=== PATIENT | female | born 1935 | race Caucasian/White ===

== ENCOUNTER 2016-03-28 13:45 | Outpatient (RCR) | payer MEDICARE, BC ==
[~2016-03-28 13:45] MED LIST: ACIDOPHILUS PO; ADVAIR 250/28 DISKU1 IH; ADVAIR 250/28 DISKUS IH; ADVAIR IH; ALAVERT10 M1 PO; BETAPACE 80MG80 MG PO; BIOTIN1 MG PO; BIOTIN5 MG PO; CALCIUM & MAGNE1 CAP PO; CLARITIN 1010 MG/TAB PO; CLEOCIN HCL300 MG PO; COENZYME Q-10100 MG PO; COMBIVENT INH14.7 GM IH; CORDARONE200 MG PO; CORTIZONE-10 MAXIM1% TP; CYMBALTA 30MG30 MG PO; D-BIOTIN10 MG PO; DILTIAZEM PO; EFFEXOR; EFFEXOR-XR150 MG PO; ENDOCET 325 MG-1 TA2 PO; ENDOCET PO; FENTANYL 12MCG; FENTANYL 50MCG TP; FISH OIL CONC1000 MG PO; FLEXERIL10 MG PO; FLONASE NASAL S16 GM NS; FOSAMAX 70MG TA70 MG PO; GLUCOSAMINE & C1 CA1 PO; GLUCOSAMINE & C1 TA2 PO; GLUCOSAMINE/CHONDROI PO; HCTZ PO; IRON FERROUS S325 MG PO; L-LYSINE1000 MG PO; LASIX 20MG TABL20 MG PO; LASIX 40MG TABL40 MG PO; LASIX40 MG PO; LEVAQUIN 750MG750 M1 PO; LEVAQUIN750 MG PO; LEVOTHYROXIN0.025 M1 PO; LEVOTHYROXINE PO; LEXAPRO10 MG PO; LISINOPRIL; LISINOPRIL PO; LISINOPRIL/HCTZ1 TAB PO; LISINOPRIL10 MG PO; LISINOPRIL2.5 MG PO; LORTAB 5/500 501 TAB PO; LYRICA 50MG CAP50 MG PO; MERIBIN5 MG PO; METRONIDAZOLE CREAM TP; MILK OF MA400 MG/51 PO; MIRALAX17 GM/DOSE PO; MS CONTIN 115 MG/TAB PO; MVI PO; NASONEX SPRAY; NASONEX SPRAY17 GM NS; NORCO 325 MG-51 TAB PO; NORITATE1% TOP; OMEGA-3 FISH1200 MG PO; PREDNISONE10 MG; PREDNISONE10 MG PO; PREMARIN0.625 MG PO; PRILOSEC 20MG20 MG PO; PRINIVIL10 MG PO; PROBIOTICA100 MILLIO PO; PROVIGIL; PROVIGIL 100MG100 MG PO; PROVIGIL PO; PULMICORT INHALER IH; ROXICODONE 55 MG/TAB PO; RT ADVAIR 228 DISKUS IH; RT ADVAIR HFA 1112 G IH; SENOKOT S 50 MG1 TAB PO; SINGULAIR 110 MG/TAB PO; SINGULAIR10 MG PO; SPORANOX 1100 MG/CAP PO; STOOL SOFTENER100 MG PO; SYNTHROID 0.0.025 MG PO; SYSTANE 0.4%-0.1 SOL OU; TINACTIN1% TP; VITAMIN C1 TAB PO; VITAMIN D 50,1.25 MG PO; VITAMIN D50000 IU PO; WELLBUTRIN SR150 MG PO; ZESTRIL 10MG10 MG PO; ZITHROMAX500 MG PO; ZYLOPRIM 100MG100 MG PO; [UNRECOGNIZED DRUG - OTHER] PO
== END 2016-04-24 | disposition still patient (30) ==
LOC: MKS.ESL.PT
DX: M54.2 Cervicalgia (principal); M54.5 Low back pain; M25.552 Pain in left hip
CPT/HCPCS: G8978-GP; G8979-GP

== ENCOUNTER 2016-07-20 13:30 | Outpatient (RCR) | payer MEDICARE, BC | END 2016-07-24 | disposition home or self-care (01) | LOC: MKS.ESL.PT | DX: M79.604 Pain in right leg (principal); M53.82 Other specified dorsopathies, cervical region ==

== ENCOUNTER 2016-11-09 13:30 | Outpatient (RCR) | payer MEDICARE, BC | END 2016-11-15 | disposition still patient (30) | LOC: MKS.ESL.PT | DX: M54.5 Low back pain (principal); M25.552 Pain in left hip; M54.2 Cervicalgia; G89.29 Other chronic pain | CPT/HCPCS: G8978-GP; G8979-GP ==

== ENCOUNTER 2017-02-08 13:30 | Outpatient (RCR) | payer MEDICARE, BC | END 2017-03-14 | LOC: MKS.ESL.PT | DX: M79.604 Pain in right leg (principal); M43.6 Torticollis ==

== ENCOUNTER → 2017-06-13 | Outpatient (RCR) | payer MEDICARE, BC | END | disposition home or self-care (01) | LOC: MKS.ESL.PT | DX: M54.2 Cervicalgia (principal); M54.9 Dorsalgia, unspecified; M25.561 Pain in right knee; M25.551 Pain in right hip; J44.9 Chronic obstructive pulmonary disease, unspecified | CPT/HCPCS: G8978-GP; G8979-GP ==

== ENCOUNTER 2017-10-07 15:00 | Outpatient (RCR) | payer MEDICARE, BC | END 2017-10-10 | disposition home or self-care (01) | LOC: MKS.ESL.PT | DX: M54.5 Low back pain (principal); M25.552 Pain in left hip; M54.2 Cervicalgia | CPT/HCPCS: G8978-GP; G8979-GP ==

== ENCOUNTER 2018-01-13 14:00 | Outpatient (RCR) | payer MEDICARE, BC | END 2018-01-30 | disposition home or self-care (01) | LOC: MKS.ESL.PT | DX: M25.512 Pain in left shoulder (principal); M79.602 Pain in left arm; M54.2 Cervicalgia; M54.9 Dorsalgia, unspecified; G89.29 Other chronic pain | CPT/HCPCS: G8978-GP; G8979-GP ==

== ENCOUNTER 2018-04-11 14:15 | Outpatient (RCR) | payer MEDICARE, BC | END 2018-05-15 | disposition home or self-care (01) | LOC: MKS.ESL.PT | DX: M54.2 Cervicalgia (principal); M25.512 Pain in left shoulder; M79.602 Pain in left arm ==

== ENCOUNTER 2018-08-11 14:15 | Outpatient (RCR) | payer MEDICARE, BC | END 2018-09-07 | disposition still patient (30) | LOC: MKS.ESL.PT | DX: M47.812 Spondylosis without myelopathy or radiculopathy, cervical region (principal); M47.816 Spondylosis without myelopathy or radiculopathy, lumbar region ==

== ENCOUNTER → 2018-11-06 | Outpatient (CLI) | payer MEDICARE, BC | LOC: COL.RAD 10:30 | DX: N26.1 Atrophy of kidney (terminal) (principal); N28.1 Cyst of kidney, acquired ==

== ENCOUNTER 2018-12-19 13:30 | Outpatient (RCR) | payer MEDICARE, BC | END 2018-12-21 | LOC: MKS.ESL.PT | DX: M51.36 Other intervertebral disc degeneration, lumbar region (principal) ==

== ENCOUNTER → 2019-03-12 | Outpatient (CLI) | payer MEDICARE, BC | LOC: MC.RAD 13:14 | DX: Z12.31 Encounter for screening mammogram for malignant neoplasm of breast (principal) ==

== ENCOUNTER 2019-05-22 13:30 | Outpatient (RCR) | payer MEDICARE, BC | END 2019-07-16 | disposition home or self-care (01) | LOC: MKS.ESL.PT | DX: M48.061 Spinal stenosis, lumbar region without neurogenic claudication (principal); M43.16 Spondylolisthesis, lumbar region; M48.02 Spinal stenosis, cervical region; R26.81 Unsteadiness on feet ==

== ENCOUNTER 2020-05-17 11:38 | Observation (INO) | payer MEDICARE, BC ==
[~2020-05-17] VITALS: Ht 165.1 cm; Wt 67.7 kg
[2020-05-17] VITALS (11 sets, daily range): BP systolic 108–164; BP diastolic 50–100; PULSE 30–70; TEMP 97.6–98.2
[2020-05-17 12:31] LABS: BASO # 0.1 (0.0-0.2); BASO % 0.6 % (0.0-2.0); EOS # 0.1 (0.0-0.7); EOS % 1.6 % (0-4.0); GRAN # 6.4 (1.4-6.5); GRAN % 72.1 % (42.2-75.2); HEMOGLOBIN 10.8 g/dl (12.5-16.0); LYMPH # 1.6 (1.2-3.4); LYMPH % 18.2 % (20.0-51.0); MEAN CELL VOLUME 92 fl (80.0-100.0); MEAN CORPUSCULAR HEMOGLOBIN 30 pg (27.0-31.0); MEAN CORPUSCULAR HGB CONC 33 g/dl (33.0-37.0); MEAN PLATELET VOLUME 11.7 fl (7.4-10.4); MONO # 0.6 (0.1-0.6); MONO % 6.9 % (1.7-9.3); PLATELET COUNT 200 K/mm3 (130-400); RED BLOOD COUNT 3.56 M/mm3 (4.10-5.30); REDCELL DISTRIBUTION WIDTH-CV 15.4 % (11.5-14.5)
[2020-05-17 12:32] LABS: HEMATOCRIT 32.6 % (37.0-47.0)
[2020-05-17 12:33] LABS: INR 1.1 (0.8-3.0); PROTHROMBIN TIME 11.8 SECONDS (9.7-12.8)
[2020-05-17 12:34] LABS: ALANINE AMINOTRANSFERASE 14 U/L (4-34); ALBUMIN 3.6 gm/dL (3.5-5.0); ALKALINE PHOSPHATASE 80 U/L (50-136); ANION GAP 7 mmol/L (7-16); AST,SGOT 21 U/L (15-37); BILIRUBIN,TOTAL 0.5 mg/dL (0.0-1.0); BLOOD UREA NITROGEN 22 mg/dL (7-17); CALCIUM 9.1 mg/dL (8.4-10.2); CARBON DIOXIDE 23 mmol/L (22-30); CHLORIDE 106 mmol/L (98-107); CREATININE, serum 1.07 (0.52-1.25); GLUCOSE 89 mg/dL (74-106); POTASSIUM 4.7 mmol/L (3.4-5.0); SODIUM 136 mmol/L (137-145); TOTAL PROTEIN 6.5 gm/dL (6.4-8.2)
[2020-05-17 12:46] LABS: TROPONIN-I < 0.012 ng/mL (0.000-0.035)
[2020-05-17] MEDS ORDERED: VITAMIN D31000 IU PO (16:32)
[2020-05-17] MEDS ORDERED: CRANBERRY 100 M1 SGL PO (16:33)
[2020-05-17] MEDS ORDERED: VOLTAREN GEL 1%1 TU TP (16:34)
[2020-05-17] MEDS ORDERED: LANOXIN 0.120.125 MG PO (16:35)
[2020-05-17] MEDS ORDERED: ATROVENT NASAL15 ML NS (16:36)
[2020-05-17] MEDS ORDERED: COZAAR 50MG50 MG/TAB PO (16:37)
[2020-05-17] MEDS ORDERED: PROTONIX 40MG T40 MG PO (16:38)
[2020-05-17] MEDS ORDERED: SYSTANE 0.4%-0.1 SOL OP (16:39)
[2020-05-17] MEDS ORDERED: CARAFATE 1GM1 G PO (16:43)
[2020-05-17] MEDS ORDERED: VENTOLIN0.09 MG IH (16:44)
[2020-05-18 01:20] VITALS: BP 153/87; PULSE 64; TEMP 98.2
[2020-05-18 02:28] LABS: COLLECTION METHOD CLEAN CATCH
[2020-05-18 02:33] LABS: PH 6 (5-8); SQUAMOUS EPITHELIAL 0-2 /hpf; URINE APPEARANCE Clear; URINE BACTERIA None Seen /hpf; URINE BILIRUBIN Negative (NEGATIVE); URINE BLOOD Negative (NEGATIVE); URINE COLOR Straw; URINE GLUCOSE Negative (NEGATIVE); URINE KETONE Negative (NEGATIVE); URINE LEUKOCYTE ESTERASE Negative (NEGATIVE); URINE NITRATE Negative (NEGATIVE); URINE PROTEIN(semi-quant) Negative (NEGATIVE); URINE RBC 0-2 /hpf; URINE UROBILINOGEN Negative (NEGATIVE)
[2020-05-18 04:23] VITALS: BP 142/70; PULSE 59; TEMP 98.2
[2020-05-18 07:56] VITALS: BP 136/50; PULSE 60; TEMP 97.5
[2020-05-18] MEDS ORDERED: CEPHALEXIN500 M1 PO (07:56)
[2020-05-18 11:33] VITALS: BP 140/57; PULSE 61; TEMP 97.8
[2020-05-18] MEDS ORDERED: TOPROL XL 25MG25 MG PO (12:19)
== END 2020-05-18 16:23 | disposition home or self-care (01) ==
LOC: COL.ER 11:38 → MEDICAL 13:24
PROVIDERS: Nurse Practitioner Primary Care; Physician Assistant; ADMIT Hospitalist
DX: Z45.010 Encounter for checking and testing of cardiac pacemaker pulse generator [battery] (principal); I44.2 Atrioventricular block, complete; G47.33 Obstructive sleep apnea (adult) (pediatric); I12.9 Hypertensive chronic kidney disease with stage 1 through stage 4 chronic kidney disease, or unspecified chronic kidney disease; N18.9 Chronic kidney disease, unspecified; I34.0 Nonrheumatic mitral (valve) insufficiency; I48.91 Unspecified atrial fibrillation; I49.5 Sick sinus syndrome; J98.4 Other disorders of lung; J45.909 Unspecified asthma, uncomplicated; N39.0 Urinary tract infection, site not specified; E03.9 Hypothyroidism, unspecified; G47.419 Narcolepsy without cataplexy; G62.9 Polyneuropathy, unspecified; Z20.822 Contact with and (suspected) exposure to COVID-19; Z90.710 Acquired absence of both cervix and uterus; Z96.642 Presence of left artificial hip joint; Z79.890 Hormone replacement therapy; Z79.899 Other long term (current) drug therapy; Z79.891 Long term (current) use of opiate analgesic; Z88.8 Allergy status to other drugs, medicaments and biological substances; Z88.6 Allergy status to analgesic agent; Z82.3 Family history of stroke
CPT/HCPCS: C1785; C1894; C1898; G0378; J0690; J2250; J3010; J7030; Q9967

== ENCOUNTER 2020-08-19 14:30 | Outpatient (RCR) | payer MEDICARE, BC ==
[~2020-08-19 14:30] MED LIST changes: +ATROVENT NASAL15 ML NS; +CARAFATE 1GM1 G PO; +CEPHALEXIN500 M1 PO; +COZAAR 50MG50 MG/TAB PO; +CRANBERRY 100 M1 SGL PO; +LANOXIN 0.120.125 MG PO; +PROTONIX 40MG T40 MG PO; +SYSTANE 0.4%-0.1 SOL OP; +TOPROL XL 25MG25 MG PO; +VENTOLIN0.09 MG IH; +VITAMIN D31000 IU PO; +VOLTAREN GEL 1%1 TU TP
== END 2020-08-23 | disposition home or self-care (01) ==
LOC: MKS.ESL.PT
DX: I44.2 Atrioventricular block, complete (principal); Z95.0 Presence of cardiac pacemaker

== ENCOUNTER 2020-11-11 14:45 | Outpatient (RCR) | payer MEDICARE, BC | END 2020-11-22 | disposition still patient (30) | LOC: MKS.ESL.PT | DX: I44.2 Atrioventricular block, complete (principal); Z95.0 Presence of cardiac pacemaker ==

== ENCOUNTER 2021-01-27 12:45 | Outpatient (RCR) | payer MEDICARE, BC ==
[~2021-01-27 12:45] MED LIST changes: +COMBIRESP IH
[2021-02-24] MEDS ORDERED: ALLEGRA 180MG180 MG PO (08:51)
[2021-02-24] MEDS ORDERED: PROVIGIL200 MG PO (08:52)
[2021-02-24] MEDS ORDERED: PULMICORT0.5 MG/2 M IH (08:55)
[2021-02-24] MEDS ORDERED: ZITHROMAX 250M250 MG PO (08:56)
[2021-02-24] MEDS ORDERED: ELIQUIS 5MG PO (08:58)
[2021-02-24] MEDS ORDERED: BREO ELLIPTA 21 EACH IH (08:59)
[2021-02-24] MEDS ORDERED: TOPROL XL 25MG25 MG PO (09:00)
[2021-02-24] MEDS ORDERED: ASTELIN NASAL S34 ML NS (09:05)
[2021-02-24] MEDS ORDERED: SODIUM CHLORIDE4 M1 IH (09:08)
[2021-02-24] MEDS ORDERED: PACERONE400 MG PO (09:55)
== END 2021-03-10 | disposition home or self-care (01) ==
LOC: MKS.ESL.PT
DX: I44.2 Atrioventricular block, complete (principal); Z95.0 Presence of cardiac pacemaker

== ENCOUNTER 2021-02-24 07:16 | Day surgery (SDC) | payer MEDICARE, BC ==
[2008-10-18 10:27] VITALS: BP 122/65
[2021-02-24] VITALS (7 sets, daily range): BP systolic 99–141; BP diastolic 61–93; PULSE 78–96; TEMP 98.1
[~2021-02-24] VITALS: Ht 165.1 cm; Wt 79.0 kg
[2021-02-24 08:14] LABS: HEMOGLOBIN 11.8 g/dl (12.5-16.0); MEAN CELL VOLUME 93 fl (80.0-100.0); MEAN CORPUSCULAR HEMOGLOBIN 31 pg (27-31); MEAN CORPUSCULAR HGB CONC 33 g/dl (33.0-37.0); MEAN PLATELET VOLUME 10.9 fl (7.4-10.4); PLATELET COUNT 173 K/mm3 (130-400); RED BLOOD COUNT 3.87 M/mm3 (4.10-5.30); REDCELL DISTRIBUTION WIDTH-CV 15.5 % (11.5-14.5)
[2021-02-24 08:22] LABS: INR 1.4 (0.8-3.0); PROTHROMBIN TIME 15.6 SECONDS (9.7-12.8)
[2021-02-24 08:28] LABS: CALCIUM 8.6 mg/dL (8.4-10.2); CREATININE, serum 1.02 mg/dL (0.57-1.11)
[2021-02-24 08:49] LABS: THYROID STIMULATING HORMONE 2.561 uIU/mL (0.350-4.940)
[2021-02-24] MEDS ORDERED: ALLEGRA 180MG180 MG PO (08:51)
[2021-02-24] MEDS ORDERED: PROVIGIL200 MG PO (08:52)
[2021-02-24] MEDS ORDERED: PULMICORT0.5 MG/2 M IH (08:55)
[2021-02-24] MEDS ORDERED: ZITHROMAX 250M250 MG PO (08:56)
[2021-02-24] MEDS ORDERED: ELIQUIS 5MG PO (08:58)
[2021-02-24] MEDS ORDERED: BREO ELLIPTA 21 EACH IH (08:59)
[2021-02-24] MEDS ORDERED: TOPROL XL 25MG25 MG PO (09:00)
[2021-02-24] MEDS ORDERED: ASTELIN NASAL S34 ML NS (09:05)
[2021-02-24] MEDS ORDERED: NACL IH (09:08)
[2021-02-24] MEDS ORDERED: PACERONE400 MG PO (09:55)
--- NOTE | 2021-02-24 11:15 | NUR ---
Discharge instructions given to pt.Pt verbalizes understanding.INT removed,catheter tip intact.Pt escorted out via wheelchair by this nurse.
== END 2021-02-24 12:28 ==
LOC: COL.CAR 07:16
PROVIDERS: Internal Medicine Cardiovascular Disease
DX: I48.91 Unspecified atrial fibrillation (principal); R42 Dizziness and giddiness; R06.02 Shortness of breath; D50.9 Iron deficiency anemia, unspecified; K21.9 Gastro-esophageal reflux disease without esophagitis; I12.9 Hypertensive chronic kidney disease with stage 1 through stage 4 chronic kidney disease, or unspecified chronic kidney disease; N18.30 Chronic kidney disease, stage 3 unspecified; I34.0 Nonrheumatic mitral (valve) insufficiency; M19.90 Unspecified osteoarthritis, unspecified site; E03.9 Hypothyroidism, unspecified; J45.909 Unspecified asthma, uncomplicated; K58.9 Irritable bowel syndrome, unspecified; G62.9 Polyneuropathy, unspecified; G47.33 Obstructive sleep apnea (adult) (pediatric); F32.A Depression, unspecified; F41.9 Anxiety disorder, unspecified; F43.10 Post-traumatic stress disorder, unspecified; Z99.89 Dependence on other enabling machines and devices; Z95.0 Presence of cardiac pacemaker; Z79.890 Hormone replacement therapy; Z79.899 Other long term (current) drug therapy; Z82.3 Family history of stroke
CPT/HCPCS: J0282; J2704; J7060

== ENCOUNTER 2021-03-21 07:57 | Day surgery (SDC) | payer MEDICARE, BC ==
[2008-10-18 10:27] VITALS: BP 122/65
[~2021-03-21] VITALS: Ht 165.1 cm; Wt 76.5 kg
[~2021-03-21 07:57] MED LIST changes: +ALLEGRA 180MG180 MG PO; +ASTELIN NASAL S34 ML NS; +BREO ELLIPTA 21 EACH IH; +ELIQUIS 5MG PO; +PACERONE400 MG PO; +PROVIGIL200 MG PO; +PULMICORT0.5 MG/2 M IH; +SODIUM CHLORIDE4 M1 IH; +ZITHROMAX 250M250 MG PO
[2021-03-21] MEDS ORDERED: PROLIA60 MG/ML SQ (08:55)
[2021-03-21] MEDS ORDERED: BUSPAR10 MG PO (08:55)
[2021-03-21] MEDS ORDERED: BREO ELLIPTA 21 EACH IH (08:56)
[2021-03-21] MEDS ORDERED: MERIBIN5 MG PO (08:57)
[2021-03-21] MEDS ORDERED: COZAAR 50MG50 MG/TAB PO (08:59)
[2021-03-21] MEDS ORDERED: VOLTAREN GEL 1%1 TU TP (09:00)
[2021-03-21] MEDS ORDERED: VITAMIN D31000 I1 PO (09:01)
[2021-03-21] MEDS ORDERED: TRIAMCINOLONE A15 G3 TP (09:03)
[2021-03-21] MEDS ORDERED: VENTOLIN0.09 MG IH (09:03)
[2021-03-21] MEDS ORDERED: [UNRECOGNIZED DRUG - OTHER] PO (09:04)
[2021-03-21] MEDS ORDERED: COMBIRESP IH (09:05)
[2021-03-21] MEDS ORDERED: SYSTANE 0.4%-0.1 SOL OP (09:06)
[2021-03-21] MEDS ORDERED: PACERONE400 MG PO (09:31)
--- NOTE | 2021-03-21 10:15 | NUR ---
Cardioversion procedure cancelled as pt was in rhythm on arrival to . Dr Jaramillo reviewed discharge med list at length with pt and prior to discharge. She denies questions. She is assisted to dress, follow up appt time and date with cardiology office reviewed. She is instructed to contact cardiology office if she feels that she goes back into a fib, such as dizziness, heart fluttering or any other abnormal symptoms. She expresses understanding. She is assisted out to 's car by wheelchair with belongings.
== END 2021-03-21 10:15 | disposition home or self-care (01) ==
LOC: COL.CAR 07:57
DX: I48.0 Paroxysmal atrial fibrillation (principal); I08.1 Rheumatic disorders of both mitral and tricuspid valves; I12.9 Hypertensive chronic kidney disease with stage 1 through stage 4 chronic kidney disease, or unspecified chronic kidney disease; N18.30 Chronic kidney disease, stage 3 unspecified; G47.30 Sleep apnea, unspecified; D64.9 Anemia, unspecified; K21.9 Gastro-esophageal reflux disease without esophagitis; E03.9 Hypothyroidism, unspecified; J44.9 Chronic obstructive pulmonary disease, unspecified; M19.90 Unspecified osteoarthritis, unspecified site; M81.0 Age-related osteoporosis without current pathological fracture; K58.9 Irritable bowel syndrome, unspecified; G47.33 Obstructive sleep apnea (adult) (pediatric); G62.9 Polyneuropathy, unspecified; F32.A Depression, unspecified; Z53.8 Procedure and treatment not carried out for other reasons; Z90.710 Acquired absence of both cervix and uterus; Z99.89 Dependence on other enabling machines and devices; Z79.899 Other long term (current) drug therapy; Z95.1 Presence of aortocoronary bypass graft; Z79.890 Hormone replacement therapy; Z82.3 Family history of stroke
CPT/HCPCS: J2704

== ENCOUNTER 2021-04-19 13:30 | Outpatient (RCR) | payer MEDICARE, BC ==
[~2021-04-19 13:30] MED LIST changes: +BUSPAR10 MG PO; +PROLIA60 MG/ML SQ; +TRIAMCINOLONE A15 G3 TP; +VITAMIN D31000 I1 PO; +[UNRECOGNIZED DRUG - OTHER] PO
== END 2021-05-08 | disposition home or self-care (01) ==
LOC: MKS.ESL.PT
DX: I44.2 Atrioventricular block, complete (principal); Z95.0 Presence of cardiac pacemaker

== ENCOUNTER 2021-07-26 13:41 | Outpatient (RCR) | payer MEDICARE, BC | END 2021-08-08 | disposition home or self-care (01) | LOC: MKS.ESL.PT | DX: R53.1 Weakness (principal); R68.89 Other general symptoms and signs; Z74.09 Other reduced mobility ==

== ENCOUNTER 2021-08-23 07:54 | Outpatient (RCR) | payer MEDICARE, BC | END 2021-09-07 | disposition still patient (30) | LOC: MKS.ESL.PT | DX: R68.89 Other general symptoms and signs (principal); Z74.09 Other reduced mobility; R53.1 Weakness ==

== ENCOUNTER 2021-09-20 13:10 | Outpatient (RCR) | payer MEDICARE, BC | END 2021-10-08 | disposition home or self-care (01) | LOC: MKS.ESL.PT | DX: R53.1 Weakness (principal); R26.89 Other abnormalities of gait and mobility; Z74.09 Other reduced mobility ==

== ENCOUNTER 2021-10-18 13:04 | Outpatient (RCR) | payer MEDICARE, BC | END 2021-11-08 | disposition home or self-care (01) | LOC: MKS.ESL.PT | DX: M54.2 Cervicalgia (principal); Z74.09 Other reduced mobility; R68.89 Other general symptoms and signs; R53.1 Weakness; G89.29 Other chronic pain ==

== ENCOUNTER 2022-01-01 16:15 | Outpatient (RCR) | payer MEDICARE, BC | END 2022-01-08 | disposition home or self-care (01) | LOC: MKS.ESL.PT | DX: Z74.09 Other reduced mobility (principal); M54.2 Cervicalgia; R53.1 Weakness ==

== ENCOUNTER 2022-06-25 13:00 | Outpatient (RCR) | payer MEDICARE, BC | END 2022-07-08 | disposition home or self-care (01) | LOC: WSST | DX: R13.13 Dysphagia, pharyngeal phase (principal) ==

== ENCOUNTER 2022-07-10 12:38 | Outpatient (CLI) | payer MEDICARE, BC ==
[2008-10-18 10:27] VITALS: BP 122/65
[~2022-07-10] VITALS: Ht 165.1 cm; Wt 77.3 kg
[2022-07-10 13:30] VITALS: BP 119/69; PULSE 73; TEMP 98.1
[2022-07-10 14:07] LABS: CALCIUM 8.4 mg/dL (8.4-10.2); CREATININE, serum 1.75 mg/dL (0.57-1.11); POTASSIUM 4.3 mmol/L (3.5-4.5)
[2022-07-10] MEDS ORDERED: ALLEGRA 180MG180 MG PO (14:27)
[2022-07-10 14:45] VITALS: BP 108/64; PULSE 70
[2022-07-10] MEDS ORDERED: LASIX 20MG TABL20 MG PO (14:46)
[2022-07-10] MEDS ORDERED: NORCO 325 MG-51 TAB PO (14:47)
[2022-07-10] MEDS ORDERED: PROVIGIL200 MG PO (14:49)
[2022-07-10 15:00] VITALS: BP 115/64; PULSE 70
--- NOTE | 2022-07-10 15:05 | NUR ---
Cardiology nurse MAXWELL Rowe notified that med rec is nearly completed and request to have Dr Jaramillo wait to finalize home meds made. Dr Jaramillo finalizes home med list just after this request is made, so there are some unaddressed meds on med list. Med Rx had been updated to match home med list pt brought with her today, but old meds that were previously entered to [facility] but are not on pt's home list had not yet been reviewed/deleted.
[2022-07-10 15:15] VITALS: BP 121/70; PULSE 70
[2022-07-10 15:30] VITALS: BP 120/105; PULSE 70
[2022-07-10 15:45] VITALS: BP 121/70; PULSE 71
[2022-07-10 16:23] LABS: HEMATOCRIT 30.4 % (37.0-47.0); HEMOGLOBIN 9.6 g/dl (12.5-16.0); INR 2.1 (0.8-3.0); MEAN CELL VOLUME 98 fl (80.0-100.0); MEAN CORPUSCULAR HEMOGLOBIN 31 pg (27-31); MEAN CORPUSCULAR HGB CONC 32 g/dl (33.0-37.0); MEAN PLATELET VOLUME 12.2 fl (7.4-10.4); PLATELET COUNT 124 K/mm3 (130-400); PROTHROMBIN TIME 24.1 SECONDS (9.7-12.8); RED BLOOD COUNT 3.09 M/mm3 (4.10-5.30); REDCELL DISTRIBUTION WIDTH-CV 16.1 % (11.5-14.5)
--- NOTE | 2022-07-10 16:40 | NUR ---
DC instructions were reviewed with pt and , both expressed understanding. Pt was assisted to restroom by wheelchair and assisted to dress. She was able to drink water and ate muffin prior to discharge. She denies any discomfort with swallowing and states she feels well post procedure. IV DC'd, site wrapped with coban. Pt assisted out to 's car after using restroom and getting dressed.
== END 2022-07-10 16:40 | disposition home or self-care (01) ==
LOC: COL.RAD 12:38
PROVIDERS: Internal Medicine Cardiovascular Disease
DX: I08.0 Rheumatic disorders of both mitral and aortic valves (principal)
CPT/HCPCS: J2704

== ENCOUNTER 2022-07-30 15:30 | Outpatient (RCR) | payer MEDICARE, BC | END 2022-08-08 | disposition home or self-care (01) | LOC: WSST | DX: R13.13 Dysphagia, pharyngeal phase (principal) ==